=== PATIENT | male | born 1960 | race Caucasian/White ===

== ENCOUNTER 2016-09-20 16:43 | Emergency (ER) | payer OTHER ==
[2016-09-20] MEDS ORDERED: CEPHALEXIN 500 MG CAPSULE PO ONE (17:38)
[2016-09-20] MEDS ORDERED: LIDOCAINE 4%/TETRACAINE 0.5%/EPI 0.18% 5 ML TOPICAL SOLN TOP ONE (17:38)
[2016-09-20] MEDS ORDERED: DIPH/PERTUSS(ACELL)/TETANUS VAC/PF 0.5 ML SYR (>=10YO) IM ONE (17:39)
--- NOTE | 2016-09-20 19:22 | ER Document Report ---
ED Wound - General Chief Complaint: Laceration Stated Complaint: ARM LACERATION Time Seen by Provider: 09/20/16 17:04 Notes: fall, skin tear right forearm. shoulder aching as well. Head injury, headache, LOC. Patient history of hep C. Tetanus is not up-to-date TRAVEL OUTSIDE OF THE [place] IN LAST 30 DAYS: No - HPI Occurred: Just prior to arrival Onset/Duration: Sudden Quality of pain: No pain Context: Injury Capillary refill: < 3 seconds Sensations intact: Yes Distal pulses present: Yes Associated Symptoms: Bleeding - Related Data Allergies/Adverse Reactions: No Known Allergies Allergy (Unverified 09/20/16 16:54) Past Medical History - Social History Smoking Status: Current Every Day Smoker Chew tobacco use (# tins/day): No Frequency of alcohol use: Social Drug Abuse: None Family History: Reviewed & Not Pertinent Renal/ Medical History: Denies: Hx Peritoneal Dialysis Surgical Hx: Negative - Immunizations Hx Diphtheria, Pertussis, Tetanus Vaccination: Yes Review of Systems - Review of Systems Constitutional: No symptoms reported Cardiovascular: No symptoms reported Respiratory: No symptoms reported Musculoskeletal: No symptoms reported Skin: See HPI Neurological/Psychological: No symptoms reported Physical Exam - Vital signs Vitals: Temp Pulse Resp BP Pulse Ox 98.1 F 99 18 178/99 H 97 09/20/16 16:53 09/20/16 16:53 09/20/16 16:53 09/20/16 16:53 09/20/16 16:53 - Notes Notes: PHYSICAL EXAM GENERAL: Alert, interacts well. HEAD: Normocephalic, atraumatic. EYES: Pupils equal, round, and reactive to light. Extraocular movements intact. ENT: Oral mucosa moist, tongue midline. NECK: Full range of motion. Supple. Trachea midline. LUNGS: Clear to auscultation bilaterally, no wheezes, rales, or rhonchi. No respiratory distress. HEART: Regular rate and rhythm. No murmurs, gallops, or rubs. ABDOMEN: Soft, nondistended, nontender. No guarding, rebound, or rigidity.. Bowel sounds present in all 4 quadrants. EXTREMITIES: Moves all 4 extremities spontaneously. No edema, radial and dorsalis pedis pulses 2/4 bilaterally. No cyanosis. NEUROLOGICAL: Alert and oriented x4. Normal speech. PSYCH: Normal affect, normal mood. SKIN: Warm, dry, normal turgor. skin tear along right radial forearm, bleeding controlled Course - Re-evaluation Re-evalutation: 09/20/16 20:59 Patient is a 56-year-old male who presents after fall. Shoulder exam shows low clinical suspicion for any concern for underlying fracture. Patient with full range of motion, minimal tenderness to palpation. Regarding the skin tear. Irrigated with Betadine and saline to bedside. Closed with Steri-Strips. Tetanus status updated. Patient discharged home on prophylactic antibiotics. Patient to follow-up with primary care. - Vital Signs Vital signs: Temp Pulse Resp BP Pulse Ox 98.6 F 100 18 161/93 H 96 09/20/16 19:42 09/20/16 19:42 09/20/16 19:42 09/20/16 19:42 09/20/16 19:42 Discharge - Discharge Clinical Impression: Skin tear of forearm without complication Qualifiers: Encounter type: initial encounter Laterality: right Qualified Code(s): S51.811A - Laceration without foreign body of right forearm, initial encounter Condition: Good Disposition: HOME, SELF-CARE Instructions: Prophylactic Antibiotic ([facility]), Tetanus Immunization Given ([facility]), Soap Cleansing ([facility]), Skin Tear ([facility]) Prescriptions: Cephalexin Monohydrate [Keflex 500 mg Capsule] 500 mg PO QID #20 capsule Forms: Elevated Blood Pressure, Return to Work
[2016-09-20 19:44] VITALS: BP 161/93
== END 2016-09-20 19:44 | disposition home or self-care (01) ==
LOC: ER 16:43
DX: S51.811A Laceration without foreign body of right forearm, initial encounter (principal); S09.90XA Unspecified injury of head, initial encounter; R51 Headache; W45.8XXA Other foreign body or object entering through skin, initial encounter; F17.200 Nicotine dependence, unspecified, uncomplicated
CPT/HCPCS: 99282; 90471; 90715; J3490

== ENCOUNTER 2016-11-01 14:53 | Emergency (ER) | payer OTHER ==
[2016-11-01] MEDS ORDERED: TETRACAINE HCL 0.5% OPH SOLN 2 ML ONE (15:11)
--- NOTE | 2016-11-01 15:44 | ER Document Report ---
ED Eye Complaint - General Mode of Arrival: Ambulatory Information source: Patient TRAVEL OUTSIDE OF THE [place] IN LAST 30 DAYS: No - HPI Onset: Yesterday Eye location: Right Injury: Yes Quality of pain: Achy - General Chief Complaint: Eye Injury Stated Complaint: RIGHT EYE INJURY Time Seen by Provider: 11/01/16 15:06 Notes: Patient is a 56 year old male that presents to the emergency department today with complaints of right eye swelling and bruising with associated pain. Patient states that he noticed this after waking up and looking in the mirror this morning. Patient states that he was intoxicated last night. Patient states he does not know what happened "partly because of alcohol and partly because I do not want to". Patient does mention he believes he may have fallen down steps last night. 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 Patient states he can open his right eye somewhat and when he does he is able to see out of it with slightly blurry vision. Patient denies globe pain but does admit to pain around the right eyeball. Patient denies any neck pain, back pain, usage of blood thinners, numbness, tingling, weakness, nausea, vomiting, or diarrhea. (TYREL SANTANA) - Related Data Allergies/Adverse Reactions: No Known Allergies Allergy (Verified 11/01/16 15:00) Past Medical History - Social History Smoking Status: Current Every Day Smoker Cigarette use (# per day): Yes Chew tobacco use (# tins/day): No Frequency of alcohol use: Occasional Drug Abuse: None Lives with: Family Family History: Reviewed & Not Pertinent Patient has suicidal ideation: No Patient has homicidal ideation: No - Past Medical History Cardiac Medical History: Reports: Hx Hypertension Infectious Medical History: Reports: Hx Hepatitis - C Past Surgical History: Reports: Hx Cardiac Catheterization - Immunizations Hx Diphtheria, Pertussis, Tetanus Vaccination: Yes Review of Systems - Review of Systems Constitutional: No symptoms reported EENT: See HPI, Other - right eye swelling and pain Cardiovascular: No symptoms reported Respiratory: No symptoms reported Gastrointestinal: denies: Diarrhea, Nausea, Vomiting Genitourinary: No symptoms reported Male Genitourinary: No symptoms reported Musculoskeletal: denies: Back pain, Neck pain Skin: No symptoms reported Hematologic/Lymphatic: No symptoms reported Neurological/Psychological: denies: Weakness, Numbness, Tingling -: Yes All other systems reviewed and negative Physical Exam - Vital signs Vitals: Temp Pulse Resp BP Pulse Ox 98.6 F 98 20 151/84 H 95 11/01/16 15:00 11/01/16 15:00 11/01/16 15:00 11/01/16 15:00 11/01/16 15:00 - Notes Notes: PHYSICAL EXAM GENERAL: Alert, interacts well. No acute distress. HEAD: Normocephalic. EYES: Right pupil is round and reactive to light. Left eye is enucleated and opacified consistent with history, blind at baseline. Diffuse subconjunctival hemorrhage on the right. No hyphema. Right periorbital swelling with associated periorbital ecchymosis. 20/40 vision in the right eye, fluorescein uptake laterally in the right eye, does not cross cornea. No ulcerations. No cell and flare in anterior chamber. No evidence of entrapment. Extraocular movements intact. Tenderness with palpation of the right orbit nasally. ENT: Superficial abrasions over bridge of nose, no tenderness with palpation. No tenderness with palpation over the zygoma. Oral mucosa moist, tongue midline. Nares patent, no nasal septal hematoma, TM's intact, no hemotympanum. Crusted blood around left nare with no active bleeding. Clear rhinorrhea on the right, no blood. Superficial abrasion to over right ear externally. NECK: Full range of motion. Supple. Trachea midline. LUNGS: Clear to auscultation bilaterally, no wheezes, rales, or rhonchi. No respiratory distress. HEART: Regular rate and rhythm. No murmurs, gallops, or rubs. ABDOMEN: Soft, non-tender. Non-distended. Bowel sounds present in all 4 quadrants. EXTREMITIES: Moves all 4 extremities spontaneously. No edema, radial and dorsalis pedis pulses 2/4 bilaterally. No cyanosis. NEUROLOGICAL: Alert and oriented x3. Normal speech. PSYCH: Normal affect, normal mood. SKIN: Warm, dry, normal turgor. 7mm linear, non-gaping laceration over lateral portion of right eyebrow, superficial abrasion over right eyebrow medially to the laceration. (TYREL SANTANA) Course - Re-evaluation Re-evalutation: 11/01/16 16:58 No significant visual impairment, on bedside exam visual acuity is 20/40, intraocular pressures could not be measured due to the swelling of his eyelid. There is a superficial abrasion, patient will be given erythromycin ointment. I was concerned for the possibility of orbital rim fracture, CT scan of the head and facial bones does not show any signs of intracranial hemorrhage or orbital fracture. Patient will be discharged home. (DU NARAYANAN) - Vital Signs Vital signs: Temp Pulse Resp BP Pulse Ox 98.6 F 98 20 151/84 H 95 11/01/16 15:00 11/01/16 15:00 11/01/16 15:00 11/01/16 15:00 11/01/16 15:00 Discharge - Discharge Clinical Impression: Tobacco abuse counseling Hypertension Qualifiers: Hypertension type: essential hypertension Qualified Code(s): I10 - Essential ( primary) hypertension Traumatic periorbital ecchymosis of right eye Qualifiers: Encounter type: initial encounter Qualified Code(s): S05.11XA - Contusion of eyeball and orbital tissues, right eye, initial encounter Condition: Stable Disposition: HOME, SELF-CARE Additional Instructions: Please use cool packs on your eye to help reduce the swelling, 10 minutes out of every hour while you are awake. If you develop worsening vision, worsening pain, double vision or any new or concerning symptoms please return to the emergency department immediately. Forms: Smoking Cessation Education, Return to Work, Elevated Blood Pressure Referrals: SHORTY EDWARDS MD [ACTIVE STAFF] - Follow up in 3-5 days Scribe Attestation: 11/01/16 17:01 I personally performed the services described in the documentation, reviewed and edited the documentation which was dictated to the scribe in my presence, and it accurately records my words and actions. (DU NRAAYANAN) Scribe Documentation - Scribe Written by Annel:: Annel Matias, 11/01/2016 1618 acting as scribe for :: Erica
[2016-11-01] MEDS ORDERED: TETRACAINE HCL 0.5% OPH SOLN 2 ML OD ONE (16:04)
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
[2016-11-01] MEDS ORDERED: ERYTHROMYCIN 0.5% OPH OINTMENT 3.5 GM (ER DISP) OD PRN (17:02)
[2016-11-01 17:22] VITALS: BP 147/82
== END 2016-11-01 17:22 | disposition home or self-care (01) ==
LOC: ER 14:53
DX: S05.11XA Contusion of eyeball and orbital tissues, right eye, initial encounter (principal); S00.31XA Abrasion of nose, initial encounter; X58.XXXA Exposure to other specified factors, initial encounter; I10 Essential (primary) hypertension; F17.210 Nicotine dependence, cigarettes, uncomplicated; Z86.19 Personal history of other infectious and parasitic diseases
CPT/HCPCS: 70450; 70486; 99283